=== PATIENT | female | born 1990 | race Caucasian/White ===

== ENCOUNTER 2021-09-29 06:48 | Day surgery (SDC) | payer OTHER ==
[~2021-09-29] VITALS: Ht 154.9 cm; Wt 72.6 kg
[~2021-09-29 06:48] MED LIST: CIPR500T89 PO; COLA100C5 PO; COLA50CA3 PO; FAMO20TA PO; IBUP80TA PO; LIDOCAINE 2% 100MG/5ML SDV (FOR ANES.) As Ordered ONE; MAPA500T2 PO; NO HISTORICAL MEDS; NS 1,000 ML IV ONE; OXYC1TAB23 PO; fentaNYL 100 MCG/2 ML INJECTION As Ordered ONE; propofoL 500 MG/50 ML VIAL As Ordered ONE
[2021-09-29] MEDS ORDERED: propofoL 200 MG/20 ML VIAL As Ordered ONE (07:53)
[2021-09-29 08:40] VITALS: BP 124/84
== END 2021-09-29 08:49 | disposition home or self-care (01) ==
LOC: M OPP 06:48
PROVIDERS: ATTEND Internal Medicine Gastroenterology
DX: K63.5 Polyp of colon (principal); K64.8 Other hemorrhoids; R19.7 Diarrhea, unspecified; R12 Heartburn; K44.9 Diaphragmatic hernia without obstruction or gangrene; K21.00 Gastro-esophageal reflux disease with esophagitis, without bleeding; K29.70 Gastritis, unspecified, without bleeding; Z79.899 Other long term (current) drug therapy; Z88.1 Allergy status to other antibiotic agents; F17.210 Nicotine dependence, cigarettes, uncomplicated
CPT/HCPCS: 43239; 45380; 88305; 88313; J3010

== ENCOUNTER 2023-09-20 08:39 | Day surgery (SDC) | payer OTHER ==
[~2023-09-20] VITALS: Ht 156.2 cm; Wt 62.8 kg
[~2023-09-20 08:39] MED LIST changes: -LIDOCAINE 2% 100MG/5ML SDV (FOR ANES.) As Ordered ONE; -NS 1,000 ML IV ONE; +OMEP40CA5 PO; -fentaNYL 100 MCG/2 ML INJECTION As Ordered ONE; -propofoL 500 MG/50 ML VIAL As Ordered ONE
[2023-09-20] MEDS: NS 1,000 ML IV ONE (09:00)
[2023-09-20] MEDS ORDERED: LIDOCAINE 2% 100MG/5ML SDV (FOR ANES.) As Ordered ONE (09:51)
[2023-09-20] MEDS ORDERED: propofoL 200 MG/20 ML VIAL As Ordered ONE (09:51)
[2023-09-20] MEDS ORDERED: fentaNYL 100 MCG/2 ML INJECTION As Ordered ONE (09:51)
[2023-09-20 10:37] VITALS: BP 106/63; TEMP 98.4; O2SAT 100
== END 2023-09-20 10:41 | disposition home or self-care (01) ==
LOC: M OPP 08:39
PROVIDERS: ATTEND Internal Medicine Gastroenterology
DX: K21.00 Gastro-esophageal reflux disease with esophagitis, without bleeding (principal); K22.70 Barrett's esophagus without dysplasia; K29.70 Gastritis, unspecified, without bleeding; K44.9 Diaphragmatic hernia without obstruction or gangrene; Z79.899 Other long term (current) drug therapy; F17.210 Nicotine dependence, cigarettes, uncomplicated; Z88.5 Allergy status to narcotic agent; Z88.1 Allergy status to other antibiotic agents; Z88.6 Allergy status to analgesic agent
CPT/HCPCS: 43239; 88305; J3010

== ENCOUNTER 2024-11-26 11:28 | Day surgery (SDC) | payer OTHER ==
[~2024-11-26] VITALS: Ht 157.5 cm; Wt 63.0 kg
[~2024-11-26 11:28] MED LIST changes: +ACET-907 PO; +DEPO150I12 IM; +LIDOCAINE 2% 100MG/5ML SDV (FOR ANES.) As Ordered ONE; +propofoL 200 MG/20 ML VIAL As Ordered ONE
[2024-11-26 13:08] VITALS: TEMP 97.6
[2024-11-26 13:30] VITALS: BP 129/74; O2SAT 100
== END 2024-11-26 13:32 | disposition home or self-care (01) ==
LOC: M OPP 11:28
PROVIDERS: ATTEND Internal Medicine Gastroenterology
DX: K22.70 Barrett's esophagus without dysplasia (principal); K44.9 Diaphragmatic hernia without obstruction or gangrene; Z88.1 Allergy status to other antibiotic agents; Z88.5 Allergy status to narcotic agent; Z88.8 Allergy status to other drugs, medicaments and biological substances; Z79.899 Other long term (current) drug therapy; F17.210 Nicotine dependence, cigarettes, uncomplicated